=== PATIENT | male | born 1975 | race Caucasian/White ===

== ENCOUNTER 2018-05-05 10:40 | Outpatient (CLI) | payer BC ==
--- NOTE | 2018-05-05 13:19 | MRI ---
MRI LUMBAR SPINE WITHOUT CONTRAST: HISTORY: Back pain. Radicular pain to the right leg. COMPARISON: None. FINDINGS: There is a T2 hyperintense focus of the posterior cortex, interpolar right kidney, with a single sept ation, likely a cyst. No retroperitoneal adenopathy. No aneurysmal dilatation of the aorta. The pa raspinal musculature is symmetric bilaterally. Modic type I endplate changes at L4-L5 with type II modic endplate changes at L5-S1. The conus medul brenda terminates near the superior endplate of L1. Levels are as follows: L1: Normal disk. No neural foraminal or spinal canal narrowing. L2-L3: Normal disk. No neural foraminal or spinal canal narrowing. L3-L4: Very small bilateral subforaminal disk osteophyte complexes with a superimposed right subfora marj disk protrusion. There is moderate right and mild left-sided neural foraminal narrowing. L4-L5: There is disk herniation centrally, which is broad-based, extending from the central zone to the bilateral paracentral, lateral recess, and subforaminal zones. Small bilateral subforaminal oste ophytes are present. There is moderate to severe bilateral neural foraminal narrowing with abutment of the exiting and traversing nerve roots bilaterally. L5-S1: Broad-based posterior disk osteophyte complex. there is extensive height loss of the disk. Moderate to severe bilateral neural foraminal narrowing. IMPRESSION: 1. Spondylosis centered at L4-L5 and at L5-S1, as described. 2. Modic type I endplate changes at L4-L5 and type II endplate changes at L5-S1, indicating chronici ty. POS: NANCY
== END 2018-05-05 10:41 | disposition home or self-care (01) ==
LOC: TBSIIMAG 10:40
PROVIDERS: ATTEND Anesthesiology Pain Medicine
DX: M51.26 Other intervertebral disc displacement, lumbar region (principal); M47.816 Spondylosis without myelopathy or radiculopathy, lumbar region; M47.817 Spondylosis without myelopathy or radiculopathy, lumbosacral region
CPT/HCPCS: 72148